=== PATIENT | male | born 1985 | race Caucasian/White ===

== ENCOUNTER 2018-07-22 11:53 | Emergency (ER) | payer BC ==
[2018-07-22 11:59] VITALS: BP 148/76; PULSE 105; RESP 18; TEMP 97.6
[2018-07-22] MEDS ORDERED: DIPH,PERTUS(ACELL)TETVAC-LF 0.5 ML VIAL IM ONE (12:04)
[2018-07-22] MEDS ORDERED: LIDOCAINE 1% INJ 10MG/ML (20 ML MDV) SQ ONE (12:24)
--- NOTE | 2018-07-22 12:36 | XR ---
EXAMINATION TYPE: XR finger LT DATE OF EXAM: 07/22/2018 CLINICAL HISTORY: pain TECHNIQUE: 3 views of the left 4th digit are submitted. COMPARISON: None FINDINGS: Transversely oriented fracture involving the subungual tuft of the left fourth digit with m ild comminution. Displacement is noted of approximately 1.5 mm. Joint spaces are well-preserved. Cor relate for soft tissue injury. IMPRESSION: Transversely oriented fracture involving the subungual tuft of the left fourth digit with mild comminution.
[2018-07-22] MEDS ORDERED: ceFAZolin 1,000 MG VIAL IM STA (12:38)
--- NOTE | 2018-07-22 12:42 | ED ---
Wound/Laceration HPI - General Chief Complaint: Wound/Laceration Stated Complaint: Crushed finger injury Time Seen by Provider: 07/22/18 12:03 Source: patient, RN notes reviewed, old records reviewed Mode of arrival: ambulatory Limitations: no limitations - History of Present Illness Initial Comments: Patient is a 33-year-old male who presents emergency Department today with complaint of left traumatic distal fourth finger injury. Patient reports that he crushed his finger between a tractor and a left. Patient states that he had the nail bed removed and complains of bleeding and swelling around the distal finger. Patient reports that he has full range of motion of the proximal joints. Patient reports his tetanus shot is not up-to-date. - Related Data Previous Rx's Medication Instructions Recorded Acetaminophen-Codeine 300-30mg 1 tab PO Q6H PRN 3 Days #12 tablet 07/22/18 [Tylenol w/codeine #3] Cephalexin [Keflex] 500 mg PO Q6HR #40 cap 07/22/18 Allergies Allergy/AdvReac Type Severity Reaction Status Date / Time No Known Allergies Allergy Verified 07/22/18 12:27 Review of Systems ROS Statement: Those systems with pertinent positive or pertinent negative responses have been documented in the HPI. ROS Other: All systems not noted in ROS Statement are negative. Past Medical History Past Medical History: No Reported History History of Any Multi-Drug Resistant Organisms: None Reported Past Surgical History: No Surgical Hx Reported Past Psychological History: No Psychological Hx Reported Smoking Status: Never smoker Past Alcohol Use History: None Reported Past Drug Use History: None Reported General Exam - General Exam Comments Initial Comments: 33-year-old male. Alert and oriented 3. Patient appears in no significant distress. Limitations: no limitations General appearance: alert, in no apparent distress Head exam: Present: atraumatic, normocephalic, normal inspection Eye exam: Present: normal appearance, PERRL, EOMI. Absent: scleral icterus, conjunctival injection, periorbital swelling ENT exam: Present: normal exam, mucous membranes moist Neck exam: Present: normal inspection. Absent: tenderness, meningismus, lymphadenopathy Respiratory exam: Present: normal lung sounds bilaterally. Absent: respiratory distress, wheezes, rales, rhonchi, stridor Cardiovascular Exam: Present: regular rate, normal rhythm, normal heart sounds. Absent: systolic murmur, diastolic murmur, rubs, gallop, clicks GI/Abdominal exam: Present: soft, normal bowel sounds. Absent: distended, ten derness, guarding, rebound, rigid Extremities exam: Present: normal inspection, full ROM, normal capillary refill. Absent: tenderness, pedal edema, joint swelling, calf tenderness Left Elbow exam: Present: normal inspection, full ROM Forearm Wrist exam: Present: normal inspection, full ROM Hand Wrist exam: Present: tenderness, swelling (fourth digit), laceration (Patient has superficial abrasions and laceration over the left fourth digit. ), nail avulsion (Left fourth finger nail avulsion). Absent: normal inspection Neuro motor exam: Present: wrist extension intact, thumb opposition intact, thumb IP flexion intact, thumb adduction intact Vascular: Present: normal capillary refill Back exam: Present: normal inspection Neurological exam: Present: alert, oriented X3, CN II-XII intact Psychiatric exam: Present: normal affect, normal mood Course Vital Signs 07/22/18 11:58 Temperature 97.6 F Pulse Rate 105 H Respiratory 18 Rate Blood Pressure 148/76 O2 Sat by Pulse 96 Oximetry Procedures - Laceration Laceration #1 Description: linear Depth: simple, single layer Anesthetic Used: lidocaine 1% Anesthesia Technique: nerve block Amount (mls): 5 Pre-repair: wound explored, irrigated extensively Type of Sutures: nylon, vicryl Size of Sutures: 5-0 Number of Sutures: 5 (4 vicryl at nailbed, 1 nylon) Technique: simple, interrupted Complications: pain Patient Tolerated Procedure: well, no complications Medical Decision Making - Medical Decision Making 33-year-old male does return today with left fourth digit injury. Patient smashed his finger on a tractor. He has evidence of a transverse tuft fracture. Patient's wound was irrigated nailbed laceration was sewed with 4 Vicryl sutures. Patient was given a DTaP. Given Kefzol IM. Patient was told be referred to Dr. Nava. Discharged with a prescription for Keflex and a short course of pain medicine. - Radiology Data Radiology results: report reviewed Transversely oriented fracture involving the subungual tuft of the left fourth digit with mild comminution. Disposition Clinical Impression: Open fracture of finger, Nailbed avulsion Disposition: HOME SELF-CARE Condition: Good Instructions (If sedation given, give patient instructions): Finger Fracture (ED) Additional Instructions: Follow-up with his primary care doctor and orthopedic physician. Take antibiotic as prescribed. Return to emergency department if any alarming signs or symptoms occur. Prescriptions: Cephalexin [Keflex] 500 mg PO Q6HR #40 cap Acetaminophen-Codeine 300-30mg [Tylenol w/codeine #3] 1 tab PO Q6H PRN 3 Days #12 tablet PRN Reason: Pain Is patient prescribed a controlled substance at d/c from ED?: Yes If prescribed controlled substance>3 days was MAPS reviewed?: Prescribed <3 Days If opioid is for acute pain is fill amount 7 days or less?: Yes If Rx opioid, was Start Talking consent form obtained?: Yes Referrals: None,Stated [Primary Care Provider] - 1-2 days Luther Nava DO [Medical Doctor] - 1-2 days Time of Disposition: 13:35
== END 2018-07-22 13:53 | disposition home or self-care (01) ==
LOC: EC 11:53
DX: S67.195A Crushing injury of left ring finger, initial encounter (principal); S62.635B Displaced fracture of distal phalanx of left ring finger, initial encounter for open fracture; S61.315A Laceration without foreign body of left ring finger with damage to nail, initial encounter; Z23 Encounter for immunization; W23.1XXA Caught, crushed, jammed, or pinched between stationary objects, initial encounter
CPT/HCPCS: 99284; 11760; 90471; 96372; 73140; 90715; J0690; J2001